=== PATIENT | male | born 1960 | race Caucasian/White ===

== ENCOUNTER → 2016-09-11 | Outpatient (REF) | payer OTHER, BC | LOC: M LAB REF 16:30 | PROVIDERS: ATTEND Ophthalmology | DX: D23.12 Other benign neoplasm of skin of left eyelid, including canthus (principal) ==

== ENCOUNTER → 2018-08-22 | Outpatient (CLI) | payer OTHER ==
--- NOTE | 2018-08-22 12:14 | REP ---
MRI LEFT SHOULDER WITHOUT CONTRAST: HISTORY: Left shoulder pain. No comparison imaging TECHNIQUE: Axial, oblique coronal, and oblique sagittal imaging planes utilized. T1- and T2-weighted scans were obtained with and without fat saturation. MRI FINDINGS: Glenohumeral and acromioclavicular joints are normally aligned. There is osteoarthritic hypertrophy at the AC joint with mild inferior spurring. No significant joint effusion is seen. There is some marrow edema on either side of the AC joint mild in degree. There is chondromalacia in the articular cartilage of the glenoid and humeral head diffusely, also mild in degree. Swelling and increased signal intensity is seen in the supraspinatus tendon distally on oblique coronal T1-weighted scans. There is no focal supraspinatus cuff tear. No muscle atrophy is seen. There is subcortical cyst formation in the proximal humerus which is a finding that may correlate with impingement. There is no visible labral cartilage tear. 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 Tendonitis tendinosis change in the distal supraspinatus tendon. Mild left glenohumeral joint fluid. Electronically Signed by Emerson Del Angel MD 08/22/2018 02:42 P
== END ==
LOC: M RAD 08-11 07:04
PROVIDERS: ATTEND Orthopaedic Surgery
DX: M94.212 Chondromalacia, left shoulder (principal); M25.512 Pain in left shoulder

== ENCOUNTER → 2018-11-08 | Outpatient (CLI) | payer OTHER ==
--- NOTE | 2018-11-12 00:14 | SLEEPCENT ---
DATE OF PROCEDURE: 11/08/2018 ORDERED BY: BARB Roach Nocturnal polysomnography was performed for evaluation of sleep physiology in this patient with a history of snoring, excessive somnolence and comorbidities of hypertension. 8 hours and 15 minutes of data were reviewed. There were 400.5 minutes of sleep identified. Sleep latency was normal at 8 minutes. Rapid eye movement (REM) latency was delayed at 145 minutes. Sleep architecture was fragmented. There were three REM cycles noted. Overall sleep efficiency was 82.2%. The electrocardiogram showed a sinus rhythm with an average heart rate of 56 beats per minute. EEG showed reasonably normal waveforms for awake and sleep. There were to 223 respiratory events identified of 10 seconds in duration or greater for an apnea-hypopnea index of 33.4. The events were primarily obstructive, not exclusive to sleep stage nor body posture. Arousals from respiratory events occurred 10.8 times per hour and oxygen desaturations were seen into the 70s. There was some activity in the limb leads but arousals were few. IMPRESSION: Severe obstructive sleep apnea syndrome (G47.33). Apnea-hypopnea index 33.4. RECOMMENDATIONS: The patient should be encouraged to return to the sleep disorder center at his earliest convenience for pressure therapy. In the interim, alcohol and sedative avoidance should be practiced and caution exercised during the operation of motor vehicles.
== END ==
LOC: M SLEEP 20:00
PROVIDERS: ATTEND Nurse Practitioner Family
DX: G47.33 Obstructive sleep apnea (adult) (pediatric) (principal)

== ENCOUNTER → 2018-12-18 | Outpatient (CLI) | payer OTHER ==
--- NOTE | 2018-12-22 17:55 | SLEEPCENT ---
DATE OF PROCEDURE: 12/18/2018 ORDERED BY: Sara Murphy Nocturnal polysomnography was performed for the titration of pressure therapy in this patient with obstructive sleep apnea syndrome. Apnea-hypopnea index 33.4. For testing a [employer] Estelita view full face mask of medium size was used. 4 cm of water pressure were applied circuit and the lights were extinguished. 8 hours and 17 minutes of data were reviewed. There are 457 minutes of sleep identified. Sleep latency was short at 3.5 minutes. REM latency was short at 69 minutes. Sleep architecture was good with six REM cycles. Overall sleep efficiency 93.5%. The patient's electrocardiogram showed sinus rhythm with an average heart rate of 56 beats per minute. EEG showed normal waveforms for awake and sleep. Respiratory events were best palliated with C-PAP of pressure of +14. Remaining measures of sleep physiology were normal. IMPRESSION: Obstructive sleep apnea syndrome (G47.33) RECOMMENDATIONS: Nightly use of pressure therapy 14 cm of water.
== END ==
LOC: M SLEEP 19:50
PROVIDERS: ATTEND Nurse Practitioner Family
DX: G47.33 Obstructive sleep apnea (adult) (pediatric) (principal)

== ENCOUNTER → 2019-05-12 | Outpatient (REF) | payer OTHER | LOC: M LAB REF 18:19 | PROVIDERS: ATTEND Ophthalmology | DX: D23.111 Other benign neoplasm of skin of right upper eyelid, including canthus (principal); D23.112 Other benign neoplasm of skin of right lower eyelid, including canthus ==

== ENCOUNTER → 2022-10-02 | Outpatient (CLI) | payer BC | LOC: M PLAIMG 16:35 | PROVIDERS: ATTEND Nurse Practitioner Family | DX: Z86.16 Personal history of COVID-19 (principal) ==

== ENCOUNTER → 2023-04-03 | Outpatient (REF) | payer BC | LOC: M LAB REF 16:27 | PROVIDERS: ATTEND Internal Medicine | DX: M10.9 Gout, unspecified (principal) ==

== ENCOUNTER → 2023-05-13 | Outpatient (REF) | payer BC | LOC: M LAB REF 13:23 | PROVIDERS: ATTEND Nurse Practitioner Adult Health | DX: R05.9 Cough, unspecified (principal) ==

== ENCOUNTER → 2023-06-13 | Outpatient (CLI) | payer BC ==
[~2023-06-13] MED LIST: METHACHOLINE KIT INH ONE
== END ==
LOC: M CARPUL 14:40
PROVIDERS: ATTEND Nurse Practitioner Family
DX: R06.02 Shortness of breath (principal)
CPT/HCPCS: 94070; J7674

== ENCOUNTER → 2023-06-19 | Outpatient (CLI) | payer BC | LOC: M PLAIMG 12:26 | PROVIDERS: ATTEND Nurse Practitioner Family | DX: R05.9 Cough, unspecified (principal) ==

== ENCOUNTER → 2023-07-08 | Outpatient (REF) | payer BC, OTHER | LOC: M LAB REF 16:17 | PROVIDERS: ATTEND Internal Medicine | DX: D84.9 Immunodeficiency, unspecified (principal) ==

== ENCOUNTER → 2024-08-10 | Outpatient (REF) | payer MEDICARE | LOC: M LAB REF 16:00 | PROVIDERS: ATTEND Internal Medicine | DX: M10.9 Gout, unspecified (principal) ==